=== PATIENT | female | born 1985 | race Caucasian/White ===

== ENCOUNTER 2017-06-26 11:25 | Emergency (ER) | payer MEDICAID ==
[~2017-06-26] VITALS: Ht 160 cm; Wt 86.0 kg
[2017-06-26 11:32] VITALS: Ht 160 cm; Wt 86.0 kg
--- NOTE | 2017-06-26 12:29 | ERD ---
ER Documentation Chief Complaint Chief Complaint pt bib self with c/o abd pain, x 4 days HPI 32 year old female comes in with right upper quadrant pain for 4 days. She reports a history of gastritis, she complains of right upper quadrant pain at this time that is localized, sharp and achy, moderate pain. She has not tried any medications, she has tried drinking chamomile tea. She denies any fevers or chills, nausea, vomiting. She denies chest pain or shortness of breath. ROS All systems reviewed and are negative except as per history of present illness. Medications Home Meds Active Scripts Ondansetron (Ondansetron Odt) 4 Mg Tab.rapdis, 4 MG PO Q6H Y for NAUSEA AND/OR VOMITING, #10 TAB Prov:CRESCENCIO BARROW PA-C 06/26/17 Ibuprofen* (Motrin*) 600 Mg Tab, 600 MG PO Q6, #30 TAB Prov:CRESCENCIO BARROW PA-C 06/26/17 Hydrocodone/Acetaminophen (Fontana 5-325 Tablet) 1 Each Tablet, 1 TAB PO Q6H Y for PAIN, #7 TAB Prov:CRESCENCIO BARROW PA-C 06/26/17 Allergies Allergies: Coded Allergies: No Known Allergy (Unverified , 06/26/17) PMhx/Soc Medical and Surgical Hx: pt denies Medical Hx Hx Alcohol Use: No Hx Substance Use: No Hx Tobacco Use: No Physical Exam Vitals Vital Signs Date Time Temp Pulse Resp B/P Pulse Ox O2 Delivery O2 Flow Rate FiO2 06/26/17 11:32 98.3 83 16 131/84 100 Physical Exam General: Well-developed, well-nourished. The patient appears in no acute distress. HEENT: Head is normocephalic, atraumatic. No scleral icterus. Neck: Supple. Nontender. Lungs: Clear to auscultation. Normal air movement. Heart: Regular rate and rhythm. S1 and S2 are normal. No murmurs, gallops, or rubs. Abdomen: Soft, tender to palpation over the right upper quadrant, Lopez sign, no hepatosplenomegaly, no McBurney tenderness, nondistended. Bowel sounds are normoactive. Extremities: No clubbing or cyanosis. Normal pulses. Moving extremities x 4. No weakness. Neurologic: Alert and oriented 3. No focal deficits. Skin: Normal turgor. No rash or lesions. Result Diagram: 06/26/17 1237 06/26/17 1237 Results 24 hrs Laboratory Tests Test 06/26/17 12:35 06/26/17 12:37 Urine Color YELLOW Urine Clarity CLEAR Urine pH 5.0 Urine Specific [place] 1.031 Urine Ketones TRACEmg/dL Urine Nitrite NEGATIVEmg/dL Urine Bilirubin NEGATIVEmg/dL Urine Urobilinogen 1+mg/dL Urine Leukocyte Esterase NEGATIVELeu/ul Urine Microscopic RBC 2/HPF Urine Microscopic WBC 0/HPF Urine Squamous Epithelial Cells FEW/HPF Urine Bacteria FEW/HPF Urine Mucus MANY/HPF Urine Hemoglobin 1+mg/dL Urine Glucose NEGATIVEmg/dL Urine Total Protein NEGATIVEmg/dl White Blood Count 10.410^3/ul Red Blood Count 4.7410^6/ul Hemoglobin 14.2g/dl Hematocrit 41.4% Mean Corpuscular Volume 87.3fl Mean Corpuscular Hemoglobin 30.0pg Mean Corpuscular Hemoglobin Concent 34.3g/dl Red Cell Distribution Width 11.9% Platelet Count 95792^3/UL Mean Platelet Volume 10.2fl Neutrophils % 67.9% Lymphocytes % 21.6% Monocytes % 8.2% Eosinophils % 1.4% Basophils % 0.5% Nucleated Red Blood Cells % 0.0/100WBC Neutrophils # 7.110^3/ul Lymphocytes # 2.310^3/ul Monocytes # 0.910^3/ul Eosinophils # 0.210^3/ul Basophils # 0.110^3/ul Nucleated Red Blood Cells # 0.010^3/ul Sodium Level 140mmol/L Potassium Level 3.8mmol/L Chloride Level 103mmol/L Carbon Dioxide Level 28mmol/L Anion Gap 13 Blood Urea Nitrogen 13mg/dl Creatinine 0.69mg/dl Glucose Level 129mg/dl Calcium Level 9.6mg/dl Total Bilirubin 0.4mg/dl Direct Bilirubin 0.00mg/dl Indirect Bilirubin 0.4mg/dl Aspartate Amino Transf (AST/SGOT) 20IU/L Alanine Aminotransferase (ALT/SGPT) 38IU/L Alkaline Phosphatase 67IU/L Total Protein 7.6g/dl Albumin 4.4g/dl Globulin 3.20g/dl Albumin/Globulin Ratio 1.37 Lipase 126U/L Serum HCG, Qualitative NEGATIVE Current Medications Medications (Trade) Dose Ordered Sig/Eric Route PRN Reason Start Time Stop Time Status Last Admin Dose Admin Acetaminophen/ Hydrocodone Bitart (Fontana (5/325)) 1 tab ONCE ONCE PO 06/26/17 12:30 06/26/17 12:31 DC 06/26/17 13:06 DIAGNOSTIC IMAGING REPORT Patient: PANCHO ALMODOVAR : 1985 Age: 32 Sex: F MR #: [id number] DOS: 06/26/17 1224 Ordering MD: CRESCENCIO BARROW PA-C Location: [facility] Room/Bed: PROCEDURE: US Abdomen. CLINICAL INDICATION: abdominal pain TECHNIQUE: Multiple real-time images were acquired of the patient's right upper quadrant abdomen and retroperitoneum utilizing a high resolution transducer. COMPARISON: None FINDINGS: The liver demonstrates normal echogenicity. The liver is normal in size and no focal solid lesions are seen. The liver measures 14.5 cm in length. The portal vein is patent with normal direction of flow. No intrahepatic biliary dilatation is seen. There are multiple calcified stones in the neck of the gallbladder and gallbladder fundus. There is no pericholecystic fluid or gallbladder wall thickening. The common bile duct measures 5 mm in maximal dimension. The visualized portions of the pancreas are unremarkable. The tail of the pancreas is not seen. No free fluid is identified. The right kidney is normal in size, and demonstrate normal echogenicity and cortical thickness. The right kidney measures 10.4 cm in long dimension. There is no evidence of hydronephrosis. There are no kidney stones. RPTAT: AA IMPRESSION: Cholelithiasis. No evidence of gallbladder wall thickening or pericholecystic fluid. .Claudio Richard MD, MD Date Time Electronically viewed and signed by .Claudio Richard MD, on 06/26/2017 13: 28 .S/ CC: CRESCENCIO BARROW PA-C Procedures/MDM 2-year-old female comes in with right upper quadrant abdominal pain, presenting with biliary colic. Gallbladder ultrasound shows gallstones without evidence of pericholecystic fluid or gallbladder wall thickening, and common bile duct is normal. She is given Fontana in emergency department, she states that her pain is 0 out of 10 at this time. There is no history of fever, vomiting. She was given copies of all of her blood work as well as her ultrasound findings, she was advised to do low-fat diet. She may warrant surgical evaluation was given a list of general surgeons for outpatient follow-up. Departure Diagnosis: Primary Impression: Biliary colic Additional Impression: Obesity Condition: Good CRESCENCIO BARROW PA-C Jun 26, 2017 12:29
[2017-06-26] MEDS ORDERED: HYDROCODONE/APAP (5/325) TAB PO ONE (12:30)
[2017-06-26 12:45] LABS: BASOPHIL # 0.1 10^3/ul (0.0-0.1); BASOPHILS % 0.5 % (0.0-2.0); EOSINOPHILS # 0.2 10^3/ul (0.0-0.5); EOSINOPHILS % 1.4 % (0.0-7.0); HEMATOCRIT 41.4 % (37.0-47.0); HEMOGLOBIN 14.2 g/dl (12.0-16.0); LYMPHOCYTES # 2.3 10^3/ul (0.8-2.9); LYMPHOCYTES % 21.6 % (15.0-51.0); MEAN CORPUSCULAR HGB CONC 34.3 g/dl (32.0-37.0); MEAN CORPUSCULAR VOLUME 87.3 fl (82.0-101.0); MEAN PLATELET VOLUME 10.2 fl (7.4-10.4); MONOCYTE # 0.9 10^3/ul (0.3-0.9); MONOCYTES % 8.2 % (0.0-11.0); NEUTROPHIL # 7.1 10^3/ul (1.6-7.5); NEUTROPHILS % 67.9 % (39.0-77.0); PLATELET COUNT 362 10^3/UL (140-415); RED BLOOD COUNT 4.74 10^6/ul (4.20-5.40); RED CELL DISTRIBUTION WIDTH 11.9 % (11.5-14.5); WHITE BLOOD COUNT 10.4 10^3/ul (4.8-10.8)
[2017-06-26 13:06] LABS: ADD UMIC YES; UR ASCORBIC ACID NEGATIVE (NEGATIVE); UR BACTERIA FEW /HPF (NONE SEEN); UR BILIRUBIN (Dip) NEGATIVE (NEGATIVE); UR BLOOD (Dip) 1+ mg/dL (NEGATIVE); UR CLARITY CLEAR (CLEAR); UR COLOR YELLOW (YELLOW); UR GLUCOSE (Dip) NEGATIVE (NEGATIVE); UR KETONES (Dip) TRACE mg/dL (NEGATIVE); UR LEUKOCYTE ESTERASE (Dip) NEGATIVE Leu/ul (NEGATIVE); UR MUCUS MANY /HPF (NONE SEEN); UR NITRITE (Dip) NEGATIVE (NEGATIVE); UR RBC 2 /HPF (0-5); UR SPECIFIC GRAVITY (Dip) 1.031 (1.003-1.030); UR SQUAMOUS EPITHELIAL CELL FEW /HPF (FEW); UR TOTAL PROTEIN (Dip) NEGATIVE (NEGATIVE); UR UROBILINOGEN (Dip) 1+ mg/dL (NEGATIVE)
[2017-06-26 13:08] LABS: ALBUMIN 4.4 g/dl (3.3-4.9); ALBUMIN/GLOBULIN RATIO 1.37; BILIRUBIN,INDIRECT 0.4 mg/dl (0-1.1); BILIRUBIN,TOTAL 0.4 mg/dl (0.2-1.3); CALCIUM 9.6 mg/dl (8.4-10.2); CREATININE 0.69 mg/dl (0.44-1.00); POTASSIUM 3.8 mmol/L (3.5-5.1); TOTAL PROTEIN 7.6 g/dl (6.1-8.1)
--- NOTE | 2017-06-26 13:28 | RADRPT ---
PROCEDURE: US Abdomen. CLINICAL INDICATION: abdominal pain TECHNIQUE: Multiple real-time images were acquired of the patient's right upper quadrant abdomen a nd retroperitoneum utilizing a high resolution transducer. COMPARISON: None FINDINGS: The liver demonstrates normal echogenicity. The liver is normal in size and no focal solid lesions are seen. The liver measures 14.5 cm in length. The portal vein is patent with normal direction of f low. No intrahepatic biliary dilatation is seen. There are multiple calcified stones in the neck of the gallbladder and gallbladder fundus. There is no pericholecystic fluid or gallbladder wall thickening. The common bile duct measures 5 mm in maxim al dimension. The visualized portions of the pancreas are unremarkable. The tail of the pancreas is not seen. No free fluid is identified. The right kidney is normal in size, and demonstrate normal echogenicity and cortical thickness. The right kidney measures 10.4 cm in long dimension. There is no evidence of hydronephrosis. There are no kidney stones. RPTAT: AA IMPRESSION: Cholelithiasis. No evidence of gallbladder wall thickening or pericholecystic fluid. .Claudio Richard MD, MD Date Time Electronically viewed and signed by .Claudio Richard MD, MD on 06/26/2017 13:28 .S/
[2017-06-26] MEDS ORDERED: HYDR-906 PO (13:44)
[2017-06-26] MEDS ORDERED: IBUP-1542 PO (13:44)
[2017-06-26] MEDS ORDERED: ONDA4TAB14 PO (13:44)
== END 2017-06-26 14:07 | disposition home or self-care (01) ==
LOC: FTE 11:25
DX: K80.50 Calculus of bile duct without cholangitis or cholecystitis without obstruction (principal); E66.9 Obesity, unspecified; Z68.33 Body mass index [BMI] 33.0-33.9, adult
CPT/HCPCS: 76705; 80053; 81001; 83690; 84703; 85025; Z7502; Z7610

== ENCOUNTER 2017-08-23 11:40 | Emergency (ER) | END 2017-08-23 17:44 | disposition home or self-care (01) ==

== ENCOUNTER 2017-08-24 23:19 | Observation (INO) | END 2017-08-26 16:52 | disposition home or self-care (01) ==

== ENCOUNTER 2017-08-27 17:59 | Emergency (ER) | END 2017-08-27 18:19 | disposition home or self-care (01) ==

== ENCOUNTER 2017-11-23 14:03 | Inpatient (IN) | END 2017-11-25 17:10 | disposition home or self-care (01) | DRG 777 ==

== ENCOUNTER 2019-01-07 15:21 | Emergency (ER) | payer SELFPAY ==
[~2019-01-07] VITALS: Ht 165.1 cm; Wt 81.6 kg
[~2019-01-07 15:21] MED LIST: IBUP-1542 PO; METH750T93 PO
[2019-01-07 15:23] VITALS: BP 137/87; PULSE 79; RESP 19; Ht 165.1 cm; Wt 81.6 kg
== END 2019-01-07 17:52 | disposition left against medical advice (07) ==
LOC: FTE 15:21
DX: Z53.21 Procedure and treatment not carried out due to patient leaving prior to being seen by health care provider (principal)